=== PATIENT | male | born 1960 | race Caucasian/White ===

== ENCOUNTER 2023-08-31 13:22 | Emergency (ER) | payer OTHER, SELFPAY ==
[2023-08-31 13:31] VITALS: BP 152/74
--- NOTE | 2023-08-31 13:58 | ED.GENMED ---
History of Present Illness
General
Chief Complaint: Musculo-Skeletal Complaint
Time Seen by Provider: 08/31/23 13:46
Travel History
Have you had any contact with someone who has COVID-19?: No
Do you have any symptoms of coronavirus? Fever > 100 degrees, chills, cough, shortness of breath, sore throat, loss of taste or smell, muscle aches, or headache?: No
History of Present Illness
History of Present Illness:
63-year-old male presents to the emergency department for evaluation of mild pain to the left distal bicep sustained when attempting to lift a heavy object. He states he felt a prominent 'pop'. He has no limitation of range of motion and very
minimal pain at rest. No prior injuries to the left bicep
Review of Systems
Review of Systems
Allergies reviewed?: Yes
All Other Systems: ROS reviewed and negative except as documented in HPI and ROS
Phy Exam
Physical Exam
Physical Exam:
GEN: Well appearing, NAD, WDWN
HEENT: Oral mucosa moist, no scleral icterus
Cardiac: Regular rate
Lung: No respiratory distress, no tachypnea
MSK: Deformity of left distal biceps compatible with distal tendon rupture, left shoulder and elbow range of motion is normal with no focal bony tenderness
Skin: Good color, no pallor or jaundice, no rashes
Neuro: AO x3, moves all extremities freely
Psych: Calm, cooperative
Course
Vital Signs
Initial and Last Documented VS:
Initial Vital Signs
Temp Pulse Resp BP Pulse Ox
98.3 F 81 20 152/74 96
08/31/23 13:31 08/31/23 13:31 08/31/23 13:31 08/31/23 13:31 08/31/23 13:31
Last Documented Vital Signs
Temp Pulse Resp BP Pulse Ox
98.3 F 81 20 152/74 96
08/31/23 13:31 08/31/23 13:31 08/31/23 13:31 08/31/23 13:31 08/31/23 13:31
MDM/Problems Addressed
MDM/Problems Addressed:
Presentation consistent with distal bicep tendon rupture. No indication for imaging at this point. Discussed supportive care and recommend outpatient orthopedic follow-up
*Critical Care Note
Total Time (30-74mins, 75-104mins- exclusive of procedures): Not Applicable
ED Attending Note
-
Portions of this chart may have been created with voice recognition software.� Occasional wrong word or��sound alike� substitutions may have occurred due to the inherent limitations of voice recognition software.
Discharge Plan
Departure
Patient Disposition: Home (Routine Discharge)
Date of Disposition: 08/31/23
Time of Disposition: 13:58
Patient with high blood pressure during this ER visit?: No
Discharge Problem:
Rupture of left distal biceps tendon
Instructions: Biceps Tendon Rupture (DC)
Referrals:
Lyle Hanson MD [Active] -
Activity Restrictions/Additional Instructions:
Take ibuprofen as needed for pain
Ice the elbow/bicep often
Pain and swelling/bruising may worsen tomorrow
Follow up with Orthopedics
Interventions
Interventions:
*Risk Screen - Suicide Last Done: 08/31/23 13:31
*General Assessment Last Done: 08/31/23 13:31
*Neglect/Abuse Screening Last Done: 08/31/23 13:31
ED- Fall Risk Assessment Last Done: 08/31/23 13:55
*Nursing Disposition Last Done: 08/31/23 14:13
ED-Musculoskeletal Assessment Last Done: 08/31/23 13:55
Discharge Date and Time
Discharge Date/Time: 08/31/23 14:14
Print Language: SLOVENIAN
== END 2023-08-31 14:14 | disposition home or self-care (01) ==
LOC: EMR 13:22
PROVIDERS: EMERGENCY PHYSICIAN Emergency Medicine; FAMILY PHYSICIAN Internal Medicine
DX: S46.212A Strain of muscle, fascia and tendon of other parts of biceps, left arm, initial encounter (principal); X50.0XXA Overexertion from strenuous movement or load, initial encounter
CPT/HCPCS: 99282